=== PATIENT | male | born 1990 | race Caucasian/White ===

== ENCOUNTER 2017-02-03 07:13 | Emergency (ER) | payer BC ==
[2017-02-03 07:27] VITALS: BP 122/62; PULSE 78; RESP 18; TEMP 98; O2SAT 98
--- NOTE | 2017-02-03 07:28 | UCPHY ---
H & P Time Seen by Provider: 02/03/17 07:27 Patient Type: New HPI/ROS: Chief complaint. Finger laceration HPI. 26-year-old male with right 3rd finger laceration that occurred at 8:00 p.m. last night while slicing potatoes with a mandolin slicer. Bleeding has been poorly controlled through the night and has continued to bleed. He is right handed. No other injuries. No sense of retained foreign body. He believes he is current on his tetanus immunization with last tetanus shot 8 years ago ROS Constitutional. no fever/chills, no weakness Eyes. no problems with vision ENT. no sore throat, no nasal drainage Cardiovascular. no chest pain Respiratory. no shortness of breath, no cough Abdominal. no abdominal pain, no nausea/vomiting, no diarrhea . no problems urinating MS. no calf pain/swelling, no neck/back pain, no joint pain Skin. Laceration right 3rd finger Lymph. no swollen glands Neuro. no headache, no dizziness, no difficulty walking or with speech Past Medical/Surgical History: Healthy Social History: Single, nonsmoker, no alcohol Smoking Status: Never smoked Physical Exam: General Appearance: Alert well-developed male mild distress vital signs are stable Eyes: Pupils equal and round no pallor or injection. ENT, Mouth: Mucous membranes are moist. Respiratory: There are no retractions, lungs are clear to auscultation. Cardiovascular: Regular rate and rhythm. Gastrointestinal: Abdomen is soft and nontender, no masses, bowel sounds normal. Neurological: Awake and alert, sensory and motor exams grossly normal. Skin: 1 cm diameter superficial avulsion to the tip of the right 3rd digit. Distal motor vascular sensitivity is intact. No evidence of foreign body. Continues to have venous bleeding Musculoskeletal: Neck is supple nontender. Extremities symmetrical, full range of motion. Psychiatric: Patient is oriented X 3, there is no agitation. Constitutional: Initial Vital Signs Temperature (C) 36.6 C 02/03/17 07:24 Heart Rate 78 02/03/17 07:24 Respiratory Rate 18 02/03/17 07:24 Blood Pressure 122/62 H 02/03/17 07:24 O2 Sat (%) 98 02/03/17 07:24 O2 Delivery Mode Room Air Allergies/Adverse Reactions: No Known Allergies Allergy (Unverified 03/28/16 10:33) Home Medications: Medication Instructions Recorded NK [No Known Home Meds] 03/28/16 MDM/Departure - MDM Procedures: Lat is applied for 20 minutes and then the wound is cleaned. Surgicel is folded and applied only to the tip over the laceration. Tube gauze dressing is applied and then splint over the top of this. Post tube gauze in splint application is inspected by me and shows good anatomic position and distal motor vascular sensitivity to be intact ED Course/Re-evaluation: Patient remains stable. Patient and I discussed treatment plan including criteria for return and importance of follow-up and further evaluation. He expresses understanding and agreement Differential Diagnosis: I considered infection potential, retained foreign body, tendon and vascular compromise - Depart Disposition: Home, Routine, Self-Care Clinical Impression: Laceration right 3rd finger Condition: Good Instructions: Laceration Without Closure (ED) Additional Instructions: Leave the splint and bulky dressing on for 24-48 hours. The folded material at the tip of your finger may stick to the cut and is more easily removed with soaking her finger in a glass of warm water in 50% hydrogen peroxide. Following removal of bandage apply antibiotic ointment and Band-Aid. May shower and wash your hands. Caution with immersion. Return for signs of infection. Ibuprofen 600 mg every 6 hours as needed for discomfort Stand Alone Forms: Work Limited Duty Referrals: NONE *PRIMARY CARE P,. [Primary Care Provider] - As per Instructions Sherine Herrera MD [Medical Doctor] - 5-7 days, if not improved - PQRS PQRS Measurement: 134: Depression screening and followup, PRIME MD-PHQ2 (12 years and older) Over the last 2 weeks, how often have you been bothered by any of the following problems? 1. Feeling down, depressed, or hopeless? 2. Little interest or pleasure in doing things? Patient answered no to both 1 and 2 130: Documentation of medications. None 226: Do you smoke? No.
== END 2017-02-03 08:41 | disposition home or self-care (01) ==
LOC: CED 07:13 → EDSTATUS 07:13 → CED 08:41
DX: S61.212A Laceration without foreign body of right middle finger without damage to nail, initial encounter (principal); W26.0XXA Contact with knife, initial encounter; Y93.G1 Activity, food preparation and clean up; Y92.010 Kitchen of single-family (private) house as the place of occurrence of the external cause; Y99.8 Other external cause status
CPT/HCPCS: 99203-PO; G0463-PO

== ENCOUNTER → 2019-03-27 | Outpatient (CLI) | payer BC | LOC: BMCIMAGING 08:40 | PROVIDERS: ATTEND Family Medicine | DX: S92.002A Unspecified fracture of left calcaneus, initial encounter for closed fracture (principal) ==

== ENCOUNTER → 2019-04-24 | Outpatient (CLI) | payer BC | LOC: BMCIMAGING 11:11 ==